=== PATIENT | female | born 1945 | race Caucasian/White ===

== ENCOUNTER 2019-03-01 11:00 | Emergency (ER) | payer MEDICARE ==
[~2019-03-01] VITALS: Ht 160 cm; Wt 61.4 kg
[~2019-03-01 11:00] MED LIST: ALBU2.5V10 NEB; ALBU8HFA PO; AMLO10TA PO; ASPI-1265 PO; BETA1TAB18 PO; BUDE10.22 INH; DIPH1TAB PO; ESTR1TAB19 PO; FLEC50TA3 PO; LACT1CAP26 PO; LORA10TA65 PO; METO50TA7 PO; OMEP20CA11 PO; POTA10CA44 PO; VITA1TAB20 PO
[2019-03-01 11:04] VITALS: BP 129/73
[2019-03-01] MEDS ORDERED: dexamethasone sod phosphate 10mg/ml inj IM STA (11:36)
[2019-03-01] MEDS ORDERED: ketorolac trometh inj. 60 MG/2 ML VIAL IM ONE (11:40)
[2019-03-01] MEDS ORDERED: GABA300C PO (11:41)
== END 2019-03-01 12:18 | disposition home or self-care (01) ==
LOC: ER 11:01
DX: M48.061 Spinal stenosis, lumbar region without neurogenic claudication (principal); M54.42 Lumbago with sciatica, left side; J44.9 Chronic obstructive pulmonary disease, unspecified; M19.90 Unspecified osteoarthritis, unspecified site; G89.29 Other chronic pain; F17.200 Nicotine dependence, unspecified, uncomplicated; Z88.8 Allergy status to other drugs, medicaments and biological substances; Z79.899 Other long term (current) drug therapy
CPT/HCPCS: 96372; 99283; J1100; J1885

== ENCOUNTER 2019-03-05 10:09 | Emergency (ER) | payer MEDICARE ==
[~2019-03-05] VITALS: Ht 160 cm; Wt 61.4 kg
[~2019-03-05 10:09] MED LIST changes: +GABA300C PO
[2019-03-05] MEDS ORDERED: LIDOcaine 5% patch TP ONE (11:00)
[2019-03-05] MEDS ORDERED: morphine 4 MG/ML inj SYRINge IM ONE (11:00)
[2019-03-05] MEDS ORDERED: ondansetron 4mg rapidly disintigrating tab PO ONE (11:00)
[2019-03-05] MEDS ORDERED: ketorolac trometh inj. 60 MG/2 ML VIAL IM ONE ×2 (12:05→12:25)
[2019-03-05] MEDS ORDERED: ketorolac trometh. 30mg/ml inj. IM ONE (12:05)
[2019-03-05] MEDS ORDERED: diazepam 5mg tablet PO ONE (12:05)
[2019-03-05] MEDS ORDERED: methylPREDNISolone sod succ 125mg/2ml vial IV ONE (12:25)
[2019-03-05 12:28] VITALS: BP 139/77
[2019-03-05] MEDS ORDERED: methylPREDNISolone sod succ 125mg/2ml vial IM ONE (12:45)
[2019-03-05] MEDS ORDERED: LIDO700A32 TP (13:31)
[2019-03-05] MEDS ORDERED: PRED20TA PO (13:31)
== END 2019-03-05 13:52 | disposition home or self-care (01) ==
LOC: ER 10:09
DX: G89.29 Other chronic pain (principal); M54.5 Low back pain; J44.9 Chronic obstructive pulmonary disease, unspecified; M19.90 Unspecified osteoarthritis, unspecified site; Z91.011 Allergy to milk products; Z79.82 Long term (current) use of aspirin; Z79.899 Other long term (current) drug therapy
CPT/HCPCS: 73502; 99284; J1885; J2270; J2930

== ENCOUNTER 2025-01-26 13:23 | Emergency (ER) | payer MEDICARE ==
[~2025-01-26] VITALS: Ht 154.9 cm; Wt 61.4 kg
[~2025-01-26 13:23] MED LIST changes: +LIDO-52 TP; -OMEP20CA11 PO; +OMEP20CA15 PO; -POTA10CA44 PO; +POTA10CA95 PO; +VITA-290 PO; -VITA1TAB20 PO
[2025-01-26 13:48] VITALS: TEMP 97.8
--- NOTE | 2025-01-26 15:47 | Physician Documentation ---
History of Present Illness ~ Chief Complaint: Ear Pain Stated Complaint: HEAD PAIN Time Seen by MD: 14:57 Primary Medical Doctor: SCARLET ALVA This is a 79-year-old female with a history of macular degeneration who presents with two days of intermittent right-sided head and scalp pain radiating from her right ear and baptist described as sharp and stabbing. Patient reports currently the pain comes in short pulses lasting 1-2 seconds and then resolving though pain was more consistent last night. Patient reports some tenderness to temporal and right scalp especially when the pain comes on. Patient reports no numbness or weakness and reports she has not noticed any new vision changes. Patient does report having an injection in the area two days prior as part of treatment for her macular degeneration. Medication Reconciliation Allergies: Coded Allergies: lactose (Verified Allergy, Unknown, 01/26/25) Scheduled Albuterol Sulfate (Albuterol Sulfate), 1 INH NEB BID, (Reported) Amlodipine Besylate (Amlodipine Besylate), 1 TABLET PO DAILY, (Reported) Aspirin (Aspirin), 81 MG PO DAILY@0830 Beta-Carotene(A) W-C & E/Min* (Ocuvite Tablet*), 1 TAB PO DAILY, (Reported) Budesonide/Formoterol Fumarate (Symbicort 80-4.5 Mcg Inhaler), 2 PUFFS INH Q12H, (Reported) Carbamazepine (Carbamazepine Er), 1 TAB PO DAILY Estradiol (Estradiol), 1 TAB PO DAILY, (Reported) Flecainide Acetate (Flecainide Acetate), 1 TAB PO BID, (Reported) Gabapentin (Neurontin), 1 CAP PO Q8H Lactobacillus Rhamnosus (Culturelle), 10,000 MMU PO BID Lidocaine (Lidoderm), 1 PATCH TP DAILY Loratadine (Claritin), 10 MG PO DAILY Metoprolol Succinate* (Toprol Xl*), 1 TAB PO DAILY@1200, (Reported) Omeprazole (Omeprazole), 1 CAP PO DAILY, (Reported) Potassium Chloride* (Potassium Chloride*), 10 MEQ PO BID@0830,1730 Vitamin B Complex (Vitamin B Complex), 1 EACH PO DAILY, (Reported) Scheduled PRN Diphenoxylate HCl/Atropine (Lomotil 2.5-0.025 mg Tablet), 1 TAB PO Q8H PRN for diarrhea, (Reported) albuterol inhaler (Pro-Air Inhaler), 1-2 PUFFS PO BID PRN for SOB or wheezing, (Reported) Past Medical History Past Medical History: COPD, Arthritis, Chronic Back Pain Past Surgical History: noncontributory Patient History: Patient reports no known family medical history. Alcohol Use: None Drug Use: none Lives In: Home Review of Systems ROS As stated above in the HPI, otherwise all systems are reviewed and negative. Physical Exam Vital Signs: Temperature: 97.8, Heart Rate: 92, Respiratory Rate: 18, BP: 126/60, Pulse Oximetry: 93, Weight: 61.360 Oxygen Flow Rate: 0 Physical Exam VITALS: Reviewed and as above. GENERAL: Alert, nontoxic appearing, no apparent distress. HEENT: Right baptist and anterior scalp mildly tender to palpation, PERRLA, EOMI, bilateral tympanic membranes clear without bulging, auditory canals clear without erythema RESPIRATORY: No increased work of breathing, no respiratory distress, speaking in full clear sentences SKIN: No rash NEURO: No facial droop, no slurred speech, no pronator drift, no focal weakness, no focal sensory deficits Procedures Procedures Intranasal administration of lidocaine, 1 mL of 4% lidocaine was atomized into the patient's right nares, patient tolerated procedure well. Progress Progress Note 0959: Pharmacist calls questioning RX for carbamazepime. He advises that she is currently on jantoven and there is a contraindication. Advised to NOT fill carbamazepime and advise patient to f/u with PCP regarding tx of her trigeminal neuralgia. Results/Orders Results/Orders Vital Signs 01/26/25 01/26/25 01/26/25 13:48 17:02 19:57 Temp 97.8 Pulse 92 89 Resp 18 15 15 B/P (MAP) 126/60 142/65 (90) Pulse Ox 93 99 O2 Flow Rate 0 Laboratory Tests Test 01/26/25 15:50 White Blood Count 10.3 Red Blood Count 3.99 L Hemoglobin 12.2 Hematocrit 36.8 Mean Corpuscular Volume 92.3 Mean Corpuscular Hemoglobin 30.6 Mean Corpuscular Hemoglobin Concent 33.1 Red Cell Distribution Width 15.5 H Platelet Count 317 Mean Platelet Volume 8.0 Neutrophils (%) (Auto) 77.4 H Lymphocytes (%) (Auto) 11.7 L Monocytes (%) (Auto) 9.0 Eosinophils (%) (Auto) 1.5 Basophils (%) (Auto) 0.4 Neutrophils # (Auto) 8.0 H Lymphocytes # (Auto) 1.2 Monocytes # (Auto) 0.9 Eosinophils # (Auto) 0.2 Basophils # (Auto) 0.0 CBC Comment Erythrocyte Sedimentation Rate 16 Sodium Level 140 Potassium Level 4.3 Chloride Level 102 Carbon Dioxide Level 28.2 Anion Gap 10 Blood Urea Nitrogen 15 Creatinine 1.00 H Estimated GFR/1.73 m2 54 BUN/Creatinine Ratio 15.0 Glucose Level 119 H Calcium Level 9.0 C-Reactive Protein 0.22 Albumin 3.7 Chemistry Comments Medical Decision Making Additional information obtaine: N/A Findings This 79-year-old female presented with two days of intermittent sharp shooting pain to the right anterior scalp and baptist, physical exam and history is consistent with trigeminal neuralgia, temporal arteritis considered however ESR CRP not elevated and no new vision changes and no pain with chewing is reassuring against temporal arteritis. CVA/TIA considered in his reassuring patient is having no focal neuro deficits including no weakness, no sensory deficits, no facial droop, no slurred speech. I discussed patient the need for careful follow up which he is able to have prompt follow up with primary care provider and marketing operations analyst. Patient is otherwise well-appearing medicated for pain and appropriate for discharge for outpatient follow up. Patient provided careful return to care precautions, follow up instructions, and home care instructions which she verbalized understanding of. Ear Diff. Dx: Considerations: Include: Foreign body, Otitis externa, Barotrauma, Otitis media, Referred pain-dental, Referred pain-pharyngitis, Referred pain-sinusitis, Referred pain-TMJ syn., Tympanic Membrane Injury, Other (Trigeminal neuralgia, occipital neuralgia, temporal arteritis) Eye Diff. Dx: Considerations: Include: Orbital cellulitis, Periobital cellulitis Nose Diff. Dx: Considerations: Unlikely: Abrasion, Anterior nasal bleed, Avulsion, Contusion, Coagulopathy, Fracture-nasal bone, Fracture-septum, Hypertension, Laceration, Other, Posterior nasal bleed, Retained foreign body, Septal hematoma Tooth Diff. Dx: Considerations: Include: Facial cellulitis, Periapical abscess Throat Diff Dx: Considerations: Include: Epiglottitis, Hand foot mouth disease Departure Time of Disposition: 17:32 Disposition: 01 HOME / SELF CARE / HOMELESS Impression: Primary Impression: Trigeminal neuralgia of right side of face Condition: Improved Discharge Instructions: Trigeminal Neuralgia Additional Instructions: Please take the medication as prescribed. Follow up soon as possible with her primary care provider for referrals to Neurology and or ophthalmology and further management of your medications to treat this condition. Please follow up with your primary care provider in the next few days. Please return to the emergency department for any new or worsening concerning symptoms. Referrals: NO PRIMARY CARE PROVIDER (PCP) Prescriptions Carbamazepine (Carbamazepine Er) 200 Mg Tab.er.12h 1 TAB PO DAILY for 30 Days, #30 TAB 0 Refills Prov: NAVID SERVIN 01/26/25 Education Educated: Patient, Family Educated regarding: diagnosis, treatment, prognosis, need for follow up Signature Scribe Signature: No scribe Attestation: The note accurately reflects work and decisions made by me.LEANN Umanzor 01/27/25 01:17 Parts of this note were created using [employer] voice recognition software program. While efforts were made to correct any mistakes made by this voice recognition software program, nonsensical phrases may remain in this note. In addition, there may be errors and syntax, grammar, content and spelling. NAVID SERVIN Jan 26, 2025 15:47 KATHERINE ROLAND NP Jan 27, 2025 10:04
[2025-01-26 16:00] LABS: MEAN PLATELET VOLUME 8.0 FL (7.4-10.4); RED CELL DISTRIBUTION WIDTH 15.5 % (11.5-14.5)
[2025-01-26 16:12] LABS: CREATININE 1.00 MG/DL (0.40-0.90); TOTAL CARBON DIOXIDE 28.2 MMOL/L (24-32); eCRCL 35 ML/MIN; eGFR 54 ML/MIN
[2025-01-26] MEDS: ketorolac trometh 15mg/ml vial 15 MG/ML ML IM ONE (17:02)
[2025-01-26] MEDS ORDERED: CARB-322 PO (17:34)
[2025-01-26] MEDS: LIDOcaine 40mg/ml topical solution MM ONE (18:05)
[2025-01-26] MEDS: carBAMazepine Ext. Release 200 MG TAB.ER.12H PO ONE (18:25)
[2025-01-26 19:57] VITALS: BP 142/65; PULSE 89; RESP 15; O2SAT 99
== END 2025-01-26 19:59 | disposition home or self-care (01) ==
LOC: ER 13:23
DX: G50.0 Trigeminal neuralgia (principal); J44.9 Chronic obstructive pulmonary disease, unspecified; G89.29 Other chronic pain; M19.90 Unspecified osteoarthritis, unspecified site; Z88.8 Allergy status to other drugs, medicaments and biological substances; Z79.899 Other long term (current) drug therapy
CPT/HCPCS: 36415; 80048; 85025; 85651; 86140; 96372; 99283; J1885